=== PATIENT | male | born 1960 | race Caucasian/White ===

== ENCOUNTER 2018-09-27 05:10 | Emergency (ER) | payer SELFPAY ==
[2018-09-27] MEDS ORDERED: NORMAL SALINE 1000 ML 1,000 ML IV ONE (05:34)
[2018-09-27 05:58] LABS: HEMATOCRIT 46.3 % (37.9-51.0); HEMOGLOBIN 15.7 g/dL (13.5-17.0); MEAN CORPUSCULAR HEMOGLOBIN 29.2 pg (27.0-33.4); MEAN CORPUSCULAR VOLUME 86 fl (80-97); RED BLOOD COUNT 5.37 10^6/uL (4.35-5.55); RED CELL DISTRIBUTION WIDTH 13.8 % (11.5-14.0); WHITE BLOOD COUNT 8.9 10^3/uL (4.0-10.5)
[2018-09-27] MEDS ORDERED: ONDANSETRON HCL INJ/PF 4 MG/2 ML SDV IV ONE (06:10)
[2018-09-27 06:11] LABS: ALANINE AMINOTRANSFERASE 27 U/L (21-72); ALBUMIN 3.8 g/dL (3.5-5.0); ALKALINE PHOSPHATASE 35 U/L (38-126); ANION GAP 11 (5-19); ASPARTATE AMINO TRANSFERASE 20 U/L (17-59); BILIRUBIN,DIRECT 0.2 mg/dL (0.0-0.4); BILIRUBIN,TOTAL 0.8 mg/dL (0.2-1.3); BLOOD UREA NITROGEN 20 mg/dL (7-20); CALCIUM 9.2 mg/dL (8.4-10.2); CARBON DIOXIDE 27 mmol/L (22-30); CHLORIDE 104 mmol/L (98-107); GLUCOSE 127 mg/dL (75-110); LIPASE 104.2 U/L (23-300); POTASSIUM 4.1 mmol/L (3.6-5.0); SODIUM 142.1 mmol/L (137-145); TOTAL PROTEIN 6.7 g/dL (6.3-8.2)
--- NOTE | 2018-09-27 06:13 | ER Document Report ---
ED General - General Chief Complaint: Nausea/Vomiting Stated Complaint: VOMITING Time Seen by Provider: 09/27/18 06:06 - HPI Patient complains to provider of: Nausea vomiting diarrhea Notes: Normally healthy 58-year-old man presents with approximately 6 hours of profuse nausea vomiting diarrhea. Patient denies any abdominal pain. Nothing is made his symptoms better or worse. Patient has episode of this in the past that resulted in profound dehydration hypotension. Very concerned this may be happe stevie again. Patient denies any shortness of breath cough or syncope Past Medical History - Social History Smoking Status: Unknown if Ever Smoked Family History: None Patient has suicidal ideation: No Patient has homicidal ideation: No Renal/ Medical History: Denies: Hx Peritoneal Dialysis Review of Systems - Review of Systems Notes: REVIEW OF SYSTEMS: CONSTITUTIONAL: -fevers, -chills EENT: -eye pain, -difficulty swallowing, -nasal congestion CARDIOVASCULAR: -chest pain, -syncope. RESPIRATORY: -cough, -SOB GASTROINTESTINAL: -abdominal pain, positive n/v/d GENITOURINARY: -dysuria, -hematuria MUSCULOSKELETAL: -back pain, -neck pain SKIN: -rash or skin lesions. HEMATOLOGIC: -easy bruising or bleeding. LYMPHATIC: -swollen, enlarged glands. NEUROLOGICAL: -altered mental status or loss of consciousness, -headache, - neurologic symptoms PSYCHIATRIC: -anxiety, -depression. ALL OTHER SYSTEMS REVIEWED AND NEGATIVE. Physical Exam - Vital signs Vitals: Temp Pulse Resp BP Pulse Ox 97.4 F 85 18 135/79 H 98 09/27/18 05:19 09/27/18 05:19 09/27/18 05:19 09/27/18 05:19 09/27/18 05:19 - Notes Notes: PHYSICAL EXAMINATION: GENERAL: Well-appearing, well-nourished and in no acute distress. HEAD: Atraumatic, normocephalic. EYES: Pupils equal round and reactive to light, extraocular movements intact, sclera anicteric, conjunctiva are normal. ENT: nares patent, oropharynx clear without exudates. Moist mucous membranes. NECK: Normal range of motion, supple without lymphadenopathy LUNGS: Breath sounds clear to auscultation bilaterally and equal. No wheezes rales or rhonchi. HEART: Regular rate and rhythm without murmurs ABDOMEN: Soft, nontender, normoactive bowel sounds. No guarding, no rebound. No masses appreciated. EXTREMITIES: Normal range of motion, no pitting or edema. No cyanosis. NEUROLOGICAL: Cranial nerves grossly intact. Normal speech, normal gait. Normal sensory and motor exams. PSYCH: Normal mood, normal affect. SKIN: Warm, Dry, normal turgor, no rashes or lesions noted. Course - Re-evaluation Re-evalutation: 09/27/18 06:12 Chart reviewed from previous visits Uncomfortable appearing 58-year-old man presents with a short duration of nausea vomiting diarrhea. Will order EKG, extensive lab work-up fluid resuscitation and antiemetics. 09/27/18 07:09 Patient given fluids and antiemetics feeling much improved extensive lab work-up unremarkable. Patient be discharged home with more oral antiemetics and follow- up at his PCP. - Vital Signs Vital signs: Temp Pulse Resp BP Pulse Ox 97.4 F 85 18 135/79 H 98 09/27/18 05:19 09/27/18 05:19 09/27/18 05:19 09/27/18 05:19 09/27/18 05:19 - Laboratory Result Diagrams: 09/27/18 05:18 09/27/18 05:18 Laboratory results interpreted by me: 09/27/18 09/27/18 05:18 05:18 Seg Neuts % (Manual) 92 H Lymphocytes % (Manual) 6 L Monocytes % (Manual) 2 L Glucose 127 H Alkaline Phosphatase 35 L - EKG Interpretation by Hi EKG shows normal: Sinus rhythm Rate: Normal Rhythm: NSR Additional EKG results interpreted by tx: 09/27/18 06:31 Lester sinus rhythm, no ST elevations or depressions no pathologic T wave inversions Discharge - Discharge Clinical Impression: Gastroenteritis Condition: Stable Disposition: HOME, SELF-CARE Instructions: Gastroenteritis (adult) ([facility]) Additional Instructions: Your PCP Prescriptions: Ondansetron [Zofran Odt 4 mg Tablet] 1 - 2 tab PO Q4H PRN #15 tab.rapdis PRN Reason: For Nausea/Vomiting
[2018-09-27 06:17] LABS: ABSOLUTE LYMPHOCYTES# (MANUAL) 0.5 10^3/uL (0.5-4.7); ABSOLUTE MONOCYTES # (MANUAL) 0.2 10^3/uL (0.1-1.4); ABSOLUTE NEUTROPHILS# (MANUAL) 8.2 10^3/uL (1.7-8.2); BASOPHILS % (MANUAL) 0 % (0-2); EOSINOPHILS % (MANUAL) 0 % (0-6); LYMPHOCYTES % (MANUAL) 6 % (13-45); MONOCYTES % (MANUAL) 2 % (3-13); SEGMENTED NEUTROPHILS % (MAN) 92 % (42-78); TOTAL CELLS COUNTED 100
[2018-09-27 06:18] LABS: PLATELET CLUMPS PRESENT; PLATELET COMMENT ADEQUATE; PLATELET COUNT 194 10^3/uL (150-450); RBC MORPHOLOGY COMMENT NORMO-CYTIC/CHROMIC
[2018-09-27 07:07] LABS: APPEARANCE,URINE CLEAR; BILIRUBIN,URINE NEGATIVE (NEGATIVE); COLOR,URINE YELLOW; GLUCOSE, URINE NEGATIVE (NEGATIVE); KETONES,URINE 20 mg/dL (NEGATIVE); LEUKOCYTE ESTERASE,URINE NEGATIVE (NEGATIVE); NITRITE,URINE NEGATIVE (NEGATIVE); PROTEIN,URINE NEGATIVE (NEGATIVE); URINE SPECIFIC GRAVITY 1.019; UROBILINOGEN,URINE NEGATIVE mg/dL (<2.0)
[2018-09-27 07:15] VITALS: BP 124/70
--- NOTE | 2018-09-27 07:22 | EKG REPORT ---
SEVERITY:- NORMAL ECG - SINUS RHYTHM : Confirmed by: Leonard Russell MD 27-Sep-2018 07:21:23
== END 2018-09-27 07:15 | disposition home or self-care (01) ==
LOC: ER 05:10
DX: K52.9 Noninfective gastroenteritis and colitis, unspecified (principal); R11.2 Nausea with vomiting, unspecified
CPT/HCPCS: 93005; 99284; 96361; 96374; 36415; 83690; 85025; 80053; 81001; 93010; J2405; J7030